=== PATIENT | female | born 1965 | race Caucasian/White ===

== ENCOUNTER → 2022-05-18 | Day surgery (SDC) | payer OTHER ==
[~2022-05-18] VITALS: Ht 162.6 cm; Wt 140.4 kg
[~2022-05-18] MED LIST: ATOR20TA86 PO; ERGO2000 PO; HYDR25TA2 PO; LIDOCAINE/PF 2% 5 ML VIAL IM ONE; LISINOPRIL-HCTZ PO; METF-446 PO; PROPOFOL 1% 20 ML VIAL IVP ONE; SODIUM CHLORIDE 0.9% 1,000 ML IV ONE; SODIUM CHLORIDE 0.9% 1,000 ML ONE
[2022-05-18 11:32] LABS: COVID AG,FIA SOURCE NASAL SWAB
[2022-05-18 12:21] LABS: GLUCOMETER DEV NAME(LOC) SDS.; GLUCOSE,POINT OF CARE 106 MG/DL (70-110)
== END | disposition still patient (30) ==
LOC: SURGERY 10:38
PROVIDERS: ATTEND Internal Medicine Gastroenterology
DX: K21.9 Gastro-esophageal reflux disease without esophagitis (principal); K21.00 Gastro-esophageal reflux disease with esophagitis, without bleeding; K44.9 Diaphragmatic hernia without obstruction or gangrene; E66.9 Obesity, unspecified; E11.9 Type 2 diabetes mellitus without complications; J45.909 Unspecified asthma, uncomplicated; F32.9 Major depressive disorder, single episode, unspecified; I10 Essential (primary) hypertension; K29.70 Gastritis, unspecified, without bleeding; Z79.899 Other long term (current) drug therapy; Z98.890 Other specified postprocedural states; E66.01 Morbid (severe) obesity due to excess calories; E78.5 Hyperlipidemia, unspecified
CPT/HCPCS: 43239; 87426; 82962; C1769; J2704; J3490; J7030; C9803